=== PATIENT | female | born 1965 | race Caucasian/White ===

== ENCOUNTER 2017-08-21 19:12 | Emergency (ER) | payer OTHER ==
[2017-08-21 19:13] VITALS: BMI 31.8
[2017-08-21 19:44] VITALS: BP 117/60; PULSE 75; RESP 18; O2SAT 98
[2017-08-21 19:57] VITALS: TEMP 97.8
--- NOTE | 2017-08-21 19:57 | ED PDOC ---
Arrival/HPI - General Historian: Patient, Family - History of Present Illness Time/Duration: 1 hour Symptom Course: Improving <Wilton Brizuela - Last Filed: 08/21/17 19:52> <Sean Keith DO - Last Filed: 08/21/17 22:40> - General Chief Complaint: Trauma - History of Present Illness Narrative History of Present Illness (Text): 08/21/17 19:52 52F w/ pmhx of diabetes presents to [facility] ED after and unprovoked fall outside and falling forward and hitting her head 1 hour prior. No sudden changes in vision, loss of consciousness, focal neurological deficits. Denies pain in neck , shoulders, numbness/tingling in extremities. PMD: Dr. Anderson PMH: NIDDM PSH: c-sec ALL: NKDA SocialHx: denies ETOH, tobacco, recreational drug use (Wilton Brizuela) Past Medical History - Provider Review Nursing Documentation Reviewed: Yes - Travel History Have you recently traveled outside [place] w/in the past 3 mons?: No - Past History Past History: Non-Contributing - Past Medical History Past Medical History: No Previous - Endocrine/Metabolic Other/Comment: "Borderline diabetic." - Psychiatric Hx Depression: No Hx Emotional Abuse: No Hx Physical Abuse: No Hx Substance Use: No - Surgical History Hx Section: Yes (x3) - Anesthesia Hx Anesthesia: Yes Hx Anesthesia Reactions: No - Suicidal Assessment Feels Threatened In Home Enviroment: No <Wilton Brizuela - Last Filed: 08/21/17 19:52> Family/Social History Family/Social History: Other (non-contributory) Smoking Status: Unknown If Ever Smoked Hx Alcohol Use: No Hx Substance Use: No <Wilton Brizuela - Last Filed: 08/21/17 19:52> Allergies/Home Meds <Wilton Brizuela - Last Filed: 08/21/17 19:52> <Sean Keith DO - Last Filed: 08/21/17 22:40> Allergies/Adverse Reactions: Allergies No Known Allergies Allergy (Verified 08/21/17 19:35) Review of Systems - Physician Review All systems were reviewed & negative as marked: Yes - Review of Systems Constitutional: Normal Eyes: Normal. absent: Vision Changes, Photophobia, Eye Pain ENT: absent: Hearing Changes, Tinnitus, Rhinorrhea Respiratory: absent: SOB, Cough Cardiovascular: absent: Chest Pain, Palpitations, Edema Gastrointestinal: absent: Abdominal Pain, Stool Changes Musculoskeletal: absent: Back Pain Skin: Other (erythema on Left knee) <Wilton Brizuela - Last Filed: 08/21/17 19:52> Physical Exam Vital Signs Reviewed: Yes Temperature: Afebrile Blood Pressure: Normal Pulse: Regular Respiratory Rate: Normal Appearance: Positive for: Well-Appearing, Non-Toxic Mental Status: Positive for: Alert and Oriented X 3 - Systems Exam Head: Present: Normocephalic, Contusion (Right side of forehead) Pupils: Present: PERRL Conjunctiva: Present: Normal Ears: No: Erythema Mouth: Present: Moist Mucous Membranes Pharnyx: No: ERYTHEMA, EXUDATE Neck: Present: Normal Range of Motion. No: MIDLINE TENDERNESS, JVD Respiratory/Chest: Present: Clear to Auscultation, Good Air Exchange. No: Respiratory Distress, Accessory Muscle Use Cardiovascular: Present: Regular Rate and Rhythm, Normal S1, S2. No: Murmurs Abdomen: Present: Normal Bowel Sounds. No: Tenderness, Distention Upper Extremity: Present: Normal Inspection Lower Extremity: Present: NORMAL PULSES, Swelling. No: CALF TENDERNESS, Pilar' s Sign Neurological: Present: GCS=15, CN II-XII Intact, Speech Normal Skin: Present: Warm, Dry Psychiatric: Present: Alert, Oriented x 3 <Wilton Brizuela - Last Filed: 08/21/17 19:52> Vital Signs Temp Pulse Resp BP Pulse Ox 08/21/17 19:40 97.8 F 75 18 117/60 98 Medical Decision Making <Wilton Brizuela - Last Filed: 08/21/17 19:52> <Sean Keith DO - Last Filed: 08/21/17 22:40> ED Course and Treatment: 08/21/17 20:02 After through physical exam focused on neurological and soft tissue of neck and LE; Patient symptoms are improving Recommend placing ice, giving Extra-strength motrin No indications for acute imaging at this time recommend D/C home in stable condition. (Wilton Brizuela) - Medication Orders Current Medication Orders: Discontinued Medications Ibuprofen (Motrin Tab) 800 mg PO STAT STA Stop: 08/21/17 19:51 Last Admin: 08/21/17 19:59 Dose: 800 mg - PA / INDUSTRIAL ORGANIZATIONAL PSYCHOLOGIST / Resident Statement IMMANUEL has reviewed & agrees with the documentation as recorded. IMMANUEL has examined the patient and agrees with the treatment plan. <Wilton Brizuela - Last Filed: 08/21/17 19:52> - PA / INDUSTRIAL ORGANIZATIONAL PSYCHOLOGIST / Resident Statement IMMANUEL has reviewed & agrees with the documentation as recorded. IMMANUEL has examined the patient and agrees with the treatment plan. <Sean Keith DO - Last Filed: 08/21/17 22:40> Disposition/Present on Arrival - Present on Arrival Any Indicators Present on Arrival: No History of DVT/PE: No History of Uncontrolled Diabetes: No Urinary Catheter: No History of Decub. Ulcer: No History Surgical Site Infection Following: None - Disposition Have Diagnosis and Disposition been Completed?: Yes Disposition Time: 20:03 Patient Plan: Discharge <Wilton Brizuela - Last Filed: 08/21/17 19:52> - Disposition Disposition Time: 19:45 <Sean Keith DO - Last Filed: 08/21/17 22:40> - Disposition Diagnosis: Head contusion Disposition: HOME/ ROUTINE Condition: GOOD Discharge Instructions (ExitCare): Minor Head Injury (DC) Additional Instructions: Thank you for letting us take care of you today. The emergency medical care you received today was directed at your acute symptoms. If you were prescribed any medication, please fill it and take as directed. It may take several days for your symptoms to resolve. Return to the Emergency Department if your symptoms worsen, do not improve, or if you have any other problems. Please contact your doctor or call one of the physicians/clinics you have been referred to that are listed on the Patient Visit Information form that is included in your discharge packet. Bring any paperwork you were given at discharge with you along with any medications you are taking to your follow up visit. Our treatment cannot replace ongoing medical care by a primary care provider (PCP) outside of the emergency department. Thank you for allowing the [facility] team to be part of your care today. Return to the emergency room immediately if you have any concerns. Follow up with your doctor in 2-3 days for re-evaluation and further management. Referrals: Patti Sam MD [Family Provider] - Follow up with primary Forms: [employer] (Telugu)
== END 2017-08-21 20:05 | disposition home or self-care (01) ==
LOC: ED 19:12
DX: S00.93XA Contusion of unspecified part of head, initial encounter (principal); W19.XXXA Unspecified fall, initial encounter; E11.9 Type 2 diabetes mellitus without complications